=== PATIENT | male | born 1945 | race Caucasian/White ===

== ENCOUNTER 2018-03-12 03:46 | Observation (INO) | payer MEDICARE, BC ==
[~2018-03-12] VITALS: Ht 175.3 cm; Wt 75.5 kg
--- NOTE | ~2018-03-12 | HP ---
PATIENT: RUDY PLATA MEDICAL RECORD: [id number] ACCOUNT: [id number] LOCATION:[address] : 43 ADMISSION DATE: 03/12/18 HISTORY AND PHYSICAL EXAMINATION DIAGNOSES: 1. Angina. 2. Heart block. 3. Symptomatic bradycardia. 4. Syncope. 5. Carotid vascular disease. 6. Coronary artery disease. 7. Status post carotid endarterectomy. 8. Status post multivessel percutaneous transluminal coronary angioplasty and stent. 9. Hypertension. 10. Abnormal ECG. HISTORY OF PRESENT ILLNESS: This is a gentleman who presents with syncope, found to have significant high-degree heart block with symptomatic bradycardia, he as well as was having some episodes of chest pain and chest discomfort. He as well has unsteady gait and has had a history of carotid disease as well as multivessel PTCA and stent done in [place]. He is on carvedilol and no other AV blocking medications as well as the carvedilol, he is on lisinopril and hydralazine. PHYSICAL EXAMINATION: GENERAL APPEARANCE: Well-nourished, well-developed, appears stated age. Level of distress, comfortable. PSYCHIATRIC: Mental status, alert, normal affect. Orientation, oriented to time, place and person. EYES: Lids and conjunctivae, noninjected. No discharge, no pallor. ENT: Lips, teeth, gums, normal dentition. Oropharynx, no cyanosis, no pallor. NECK: Carotid arteries, bilateral normal upstroke, no bruits, no thrills. JUGULAR VEINS: No jugular venous pressure or distention. CERVICAL LYMPH NODES: Nontender, nonenlarged. THYROID: Not enlarged. Nontender. No nodules. LUNGS: Respiratory effort, unlabored. CHEST: Normal curvature. No thoracic deformity. No chest wall tenderness. Percussion, resonant. Auscultation, clear. No wheezes, no rales, no rhonchi. CARDIOVASCULAR: Precordial exam, nondisplaced. No heaves or pericardial thrills. Rate and rhythm, regular. Heart sounds, normal S1, normal S2. No S3, no gallop, no rub. Systolic murmur, not heard. Diastolic murmur, not heard. EXTREMITIES: No cyanosis, no edema. Peripheral pulses, full and equal in all extremities, except as noted. No bruits appreciated. ABDOMEN: Soft, nondistended. Normal aorta. No bruit. Nontender. No masses. Liver, nontender, no hepatomegaly. Spleen, nontender, no splenomegaly. MUSCULOSKELETAL: No joint tenderness. No joint swelling. No erythema. NEUROLOGICAL: Normal gait, normal strength, normal tone. SKIN: Warm and dry. REVIEW OF SYSTEMS: REVIEW OF SYSTEMS: The patient reports easy bruising but reports no swollen glands. The patient reports no fever, no night sweats, no significant weight gain, no significant weight loss. No significant exercise tolerance. The patient reports no dry eyes, no irritation, no vision change. HISTORY AND PHYSICAL [id number] RUDY PLATA Patient reports no difficulty hearing and no ear pain. Patient reports no frequent nose bleeds or nose and sinus problems. Patient reports on arm pain on exertion. No shortness of breath while lying down. No history of heart murmur. Patient reports no cough, no wheezing or coughing up blood. Patient reports no abdominal pain, no vomiting. Normal appetite. No diarrhea and not vomiting blood. No nausea and no constipation. Patient reports no incontinence. No difficulty urinating. No hematuria. No increased frequency. Patient reports no muscle aches. No weakness, no arthralgias, no back pain. No swelling of the extremities. Patient reports no abnormal mole, no jaundice, no rashes. Reports no loss of consciousness. No weakness and no numbness. No seizures, dizziness, or headaches. The patient reports no depression, no sleep disturbance, feeling safe in a relationship and no alcohol abuse. Patient reports on fatigue. Reports no runny nose or sinus pressure. No itching, no hives, and no frequent sneezing. OVERALL IMPRESSION: Symptomatic bradycardia secondary to the carvedilol, will discontinue the carvedilol. We will change him to Procardia-XL for blood pressure control and due to his abnormal ECG symptomatology, we will proceed with coronary angiography and four-vessel carotid and vertebral angiography. Further care depends upon the findings of the angiography. TRANSINT:[id number] Voice Confirmation ID: [id number] DOCUMENT ID: [id number] MICHI KEANE MD at 1104 CC: [id number] DICTATION DATE: 03/12/18 1014 BLOCKER AND POLISHER: 03/12/18 1108 [facility] [address] [place] [address]
--- NOTE | ~2018-03-12 | EC ---
PATIENT:RUDY PLATA DATE OF SERVICE: 03/12/18 SEX: M MEDICAL RECORD: [id number] DATE OF : 43 [facility] AGE OF PATIENT: 72 ADMISSION DATE: 03/12/18 REFERRING PHYSICIAN: INTERPRETING PHYSICIAN: MICHI PALMA MD ECHOCARDIOGRAM REPORT ECHO CHARGES 4 ECHO COMPLETE Date: 03/12 CLINICAL DIAGNOSIS: CHEST PAIN ECHOCARDIOGRAPHIC MEASUREMENTS (adult normal given) AC root (d.<3.7cm) 3.9 cm LV Septum d (<1.2 cm> 1.3 cm Valve Excursion 2.0 cm LV Septum (systole) 1.5 cm Left Atria (s.<4.0cm> 3.8 cm LVPW d(<1.2cm) 1.6 cm RV (d.<2.3cm) 3.9 cm LVPW (sytole) 1.7 cm LV diastole(<5.6CM) 4.3 cm MV E-F(>70mm/sec) cm LV systole 3.1 cm LVOT Diameter 1.7 cm MV exc.(>10mm) 1.7 cm Est.ejection fraction (50-75%) % DOPPLER: LVIT cm/sec A 100 cm/sec E 163 cm/sec LA cm/sec RVSP 30 mmHg LVOT 140 cm/sec AOP1/2T m/s Asc. Ao 264 cm/sec RVOT cm/sec RA cm/sec PA 212 cm/sec AV Gradient Peak 27.85mmHg AV Mean 14.84mmHg AV Area 1.1 cm MV Gradient Peak 12.17mmHg MV Mean 4.38 mmHg MV Area cm COMMENTS: Shelver: Jeana PALACIO [employer] Maker: 1 Dr. Palma TAPE# PACS Pericardial Effusion N DATE OF SERVICE: 03/12/2018 FINDINGS: 1. Left ventricular chamber size is within normal limits. Left ventricular systolic function is normal. Overall ejection fraction estimated at 55% to 60%. 2. Left atrium is within normal limits at 3.8 cm. Right atrium and right ventricle chamber sizes are mildly dilated. 3. Valvular structures: Aortic valve demonstrates mild calcific aortic stenosis, valve area calculates to 1.1 cm-squared with a gradient of 28 mm across the valve. The remaining valvular structures have normal structure and ECHOCARDIOGRAM REPORT [id number] PLATA,RUDY D motion. 4. Doppler interrogation elsewise reveals lyan-dx-rorfmbed mitral regurgitation, mild tricuspid regurgitation, no other valvular insufficiency or stenosis. Pulmonary systolic pressure is estimated at 30 mmHg. 5. No evidence of pericardial effusion or left ventricular thrombus. TRANSINT:[id number] Voice Confirmation ID: [id number] DOCUMENT ID: [id number] MICHI PALMA MD at 1325 CC: [id number] DICTATION DATE: 03/13/18 1104 EXECUTIVE PILOT: 03/13/18 1140 DIS IN 03/14/18 [id number] [place] [address]
--- NOTE | ~2018-03-12 | HEMODYNAMI ---
PATIENT:RUDY PLATA MEDICAL RECORD: [id number] : 43 [facility] [facility] [id number] ADMISSION DATE: 03/12/18 Generatedon:03/14/201811:06 Patient name: RUDY PLATA Patient #: [id number] SSN: : 1945 Date of study: 03/14/2018 Page: Of Hemodynamic Procedure Report Patient Data Patient Demographics Procedure consent was obtained First Name: RUDY Gender: Male Last Name: SHERLYN : 1945 Middle Initial: D Age: 72 year(s) Patient #: [id number] Race: Unknown Additional ID: [id number] Contact details [address]: [address] [place] [address] [address]ET State: [place] City: [place] Zip code: [address] Past Medical History Allergies Allergen Reaction Date Comments Reported Other allergy 03/13/2018 Milk Other allergy 03/14/2018 ASPARTAME, MULTIPLE FOODS Admission Admission Data Admission Date: 03/12/2018 Admission Time: 4:47 Admit Source: Other Room #: D.2116 Lab Results Lab Result Date: 03/13/2018 Lab Result Time: 10:33 Biochemistry Name Units Result Min Max BUN mg/dl 11 --(-*--)-- 7 18 Creatinine mg/dl 0.6 --(*---)-- 0.6 1.3 CBC Name Units Result Min Max Hematocrit % 44.5 --(*---)-- 42 54 Hemoglobin g/dl 15.3 --(-*--)-- 13.5 17.5 Procedure Procedure Types Cath Procedure PCI Procedure Coronary Stent Coronary Stent Additional Procedure Description Procedure Date Procedure Date: 03/14/2018 Procedure Start Time: 10:53 Procedure End Time: 11:02 Procedure Staff Name Function Dudley Palma MD Performing Physician Crow Nash RN Cut Out Stitcher Elaina Teran RT Monitor Anthony Arteaga RN Nurse Sebastien Jackman RT Scrub Procedure Data Cath Procedure Fluoroscopy Diagnostic fluoroscopy Total fluoroscopy Time: 1.8 time: 1.8 min min Diagnostic fluoroscopy Total fluoroscopy dose: 231 dose: 231 mGy mGy Contrast Material Contrast Material Type Amount (ml) Isovue 300 44 Entry Location Entry Primary Successful Side Size Upsize Upsize Entry Closure Hunter ccessful Closure Location (Fr) 1 (Fr) 2 (Fr) Remarks Device Remarks Radial Right 6 Fr Mechanical artery Short Compression Estimated blood loss: 10 ml Procedure Complications No complications Procedure Medications Medication Administration Route Dosage Oxygen NC 2 l/min Lidocaine 2% added to field 20 Heparin Flush Bag added to field 2 bags (1000units/500ml NS) 0.9% NaCl I.V. 100 ml/hr Radial Cocktail I.A. 1 syringe (Verapomil 2mg/Nitro 400mcg/Heparin 1500units) Versed I.V. 1 mg Fentanyl I.V. 50 mcg Versed I.V. 1 mg Fentanyl I.V. 50 mcg Heparin Bolus I.V. 4000 units Versed I.V. 0.5 mg Fentanyl I.V. 25 mcg Hemodynamics Rest HGB: 15.3 (g/dl) Heart Rate: 72 (bpm) Snapshots Pre Cath Intra NCS Post Cath Vital Signs Time Heart Resp SPO2 etCO2 NIBP (mmHg) Rhythm Pain Sedation Rate (ipm) (%) (mmHg) Status Level (bpm) 10:34:06 69 13 98 29.1 204/104(157) NSR 0 (11) 10(A) , No pain 10:38:39 59 14 98 31.3 188/82(153) NSR 0 (11) 10(A) , No pain 10:43:09 58 15 95 29.9 165/73(121) NSR 0 (11) 10(A) , No pain 10:47:34 54 15 97 0 147/74(118) NSR 0 (11) 10(A) , No pain 10:51:52 55 15 92 26.9 149/73(123) NSR 0 (11) 9(A) , No pain 10:56:14 59 15 95 15.6 128/64(95) NSR 0 (11) 9(A) , No pain 11:00:30 58 14 94 26.1 116/58(97) NSR 0 (11) 9(A) , No pain 11:05:35 59 15 94 30.6 127/68(105) NSR 0 (11) 10(A) , No pain Medications Time Medication Route Dose Verified Delivered Reason Note s Effectiveness by by 10:37:10 Oxygen NC 2 l/min Dudley Cruz used for Louie Arteaga RN procedure 10:37:18 Lidocaine 2% added 20ml Dudley Buckner for local to vial Louie Palma MD anesthetic field 10:38:32 Heparin Flush added 2 bags Dudley Buckner used for Bag to Louie Palma MD procedure (1000units/500ml field NS) 10:38:42 0.9% NaCl I.V. 100 Dudley Cruz Per physician ml/hr Louie Arteaga RN 10:48:14 Versed I.V. 1 mg Dudley Cruz for sedation Louie Arteaga RN 10:48:19 Fentanyl I.V. 50 mcg Dudley Cruz for sedation Louie Arteaga RN 10:53:54 Versed I.V. 1 mg Dudley Cruz for sedation Louie Arteaga RN 10:53:58 Fentanyl I.V. 50 mcg Dudley Cruz for sedation Louie Arteaga RN 10:54:16 Radial Cocktail I.A. 1 Dudley Buckner for (Verapomil syringe Louie Palma MD vasodilation 2mg/Nitro 400mcg/Heparin 1500units) 10:55:17 Heparin Bolus I.V. 4000 Dudley Cruz for veri fied units Louie Arteaga RN anticoagulation with dr palma 10:58:28 Versed I.V. 0.5 mg Dudley Cruz for sedation Louie Arteaga RN 10:58:32 Fentanyl I.V. 25 mcg Dudley Cruz for sedation Louie Arteaga RN Procedure Log Time Note 10:10:21 Crow Nash RN sent for patient. Start room use. 10:19:22 Time tracking: Regular hours (M-F 7:00 - 5:00) 10:19:26 Plan of Care:Hemodynamics will remain stable., Cardiac rhythm will remain stable., Comfort level will be maintained., Respiratory function will remain adequate., Patient/ family verbilizes understanding of procedure., Procedure tolerated without complication., Recovers from procedure without complications.. 10:23:48 H&P Date Dictated: 03/13/2018 Within 30 days and on chart.. 10:24:39 Lab results completed and on chart. 10:24:49 Patient received from Med II to CCL 1 Alert and oriented. Tansferred to table in Supine position. 10:24:52 Warm blankets applied, and trace hugger turned on for patient comfort. 10:24:53 Correct patient and procedure confirmed by team. 10:24:54 Signed procedure consent form obtained from patient. 10:24:55 ECG and BP/O2 sat monitors applied to patient. 10:31:47 Vital chart was started 10::51 Baseline sample Acquired. 10::56 Rhythm: sinus rhythm 10:32:13 Full Disclosure recording started 10:37:10 Oxygen 2 l/min NC was administered by Anthony Arteaga RN; used for procedure; 10:37:18 Lidocaine 2% 20ml vial added to field was administered by Dudley Palma MD; for local anesthetic; 10:38:32 Heparin Flush Bag (1000units/500ml NS) 2 bags added to field was administered by Dudley Palma MD; used for procedure; 10:38:42 0.9% NaCl 100 ml/hr I.V. was administered by Anthony Arteaga RN; Per physician; 10:41:33 Pre-procedure instructions explained to patient. 10:41:34 Pre-op teaching completed and patient verbalized understanding. 10:41:37 Family in patients room. 10:41:38 Patient NPO since Midnight. 10:42:01 Patient allergic to Other allergyASPARTAME, MULTIPLE FOODS 10:42:03 Is the patient allergic to Iodine/contrast media? No. 10:42:05 Is patient on blood thinner?Yes 10:42:09 ACC The patient was administered the following blood thiners within the last 24 hours: ACCPlavix 10:42:12 Patient diabetic? No. 10:42:52 If diabetic: On Metformin? No 10:42:55 Previous problem with sedation/anesthesia? No ? 10:42:56 Snore? Yes 10:42:57 Sleep apnea? No 10:42:58 Deviated septum? No 10:42:59 Opens mouth fully? Yes 10:42:59 Sticks out tongue? Yes 10:43:01 Airway obstruction? No ? 10:43:04 Dentures? No ? 10:43:06 Modified Aquiles's test Ulnar < 7 seconds 10:43:09 Patient pain scale 0/10 ?. 10:43:14 IV patent on arrival in left antecubital with 0.9% NaCl at [facility]. 10:43:20 Right Radial & Left Groin area was prepped with chlora-prep and draped in sterile fashion 10:43:21 Alarms reviewed by R. N. 10:43:21 Sharps counted by scrub and verified by R.N. 10:43:29 Use device set CATH PACK 10:43:31 ACIST Syringe (54218) opened to sterile field. 10:43:31 ACIST Hand Control (94613) opened to sterile field. 10:43:32 ACIST Manifold (37299) opened to sterile field. 10:43:33 Medline Cath Pack ([id number]) opened to sterile field. 10:43:33 Bag Decanter (2002S) opened to sterile field. 10:43:34 DIAGNOSTIC WIRE .035 260cm J wire (941926) opened to sterile field. 10:43:41 SHEATH 6FR Slender ([id number]) opened to sterile field. 10:43:52 INFLATOR Merit BasixCompak (XG0166) opened to sterile field. 10:43:53 CHOICE PT Extra Support 182cm wire ([id number]) opened to sterile field. 10:47:33 Zero performed for pressure channel P1 10:47:39 --------ALL STOP TIME OUT------ 10:47:40 Final Timeout: patient, procedure, and site verified with staff and physician. All members of the team are in agreement. 10:47:43 Right Radial & Left Groin site verified by team. 10:47:47 Physical assessment completed. ASA score P 2 - A patient with mild systemic disease as per Dudley Palma MD. 10:47:50 Sedation plan: IV Moderate Sedation Medication:Versed, Fentanyl 10:48:14 Versed 1 mg I.V. was administered by Anthony Arteaga RN; for sedation; 10:48:19 Fentanyl 50 mcg I.V. was administered by Anthony Arteaga RN; for sedation; 10:53:32 Procedure started. 10:53:42 GUIDE 6FR XBLAD 4.0 catheter ([id number]) opened to sterile field. 10:53:54 Versed 1 mg I.V. was administered by Buffie Arteaga RN; for sedation; 10:53:54 Local anesthetic to right radial artery with Lidocaine 2% by Dudley Palma MD.INITIAL ACCESS ONLY 10:53:58 Fentanyl 50 mcg I.V. was administered by Anthony Arteaga RN; for sedation; 10:54:16 Radial Cocktail (Verapomil 2mg/Nitro 400mcg/Heparin 1500units) 1 syringe I.A. was administered by Dudley Palma MD; for vasodilation; 10:54:41 A 6 Fr Short sheath was inserted into the Right Radial artery 10:55:17 Heparin Bolus 4000 units I.V. was administered by Anthony Arteaga RN; for anticoagulation; verified with dr palma 10:55:32 6 Fr XBLAD 4 guide catheter was inserted over the wire 10:57:38 CHOICE ES 182 wire advanced. 10:57:41 Wire advanced across lesion. 10:58:28 Versed 0.5 mg I.V. was administered by Anthony Arteaga RN; for sedation; 10:58:32 Fentanyl 25 mcg I.V. was administered by Anthony Arteaga RN; for sedation; 10:58:58 Place stent Inflation Number: 1 A JUAN RX 2.0 x 12 stent ([id number]) was prepped and advanced across the 1st Diag. The stent was deployed at 21 REGIS for 0:10 (min:sec). 10:59:16 Stent catheter was removed intact over wire. 10:59:16 Wire removed. 10:59:17 Guide catheter removed. 10:59:43 TR BAND Standard ([id number]) opened to sterile field. 10:59:49 Procedure ended.(Physican Out) 10:59:54 Sheath removed intact; hemostasis achieved with Mechanical Compression to the Right Radial artery. 11:00:13 Fluoroscopy time 01.80 minutes. 11:00:16 Flurop Dose total: 231 11:00:16 Fluoroscopy dose: 231 mGy 11:00:20 Contrast amount:Isovue 300 44ml. 11:00:22 Sharps counted by scrub and verified by R.N. 11:00:25 TR band inflated with 10cc of air. 11:00:27 Insertion/operative site no bleeding no hematoma. 11:00:30 Post-procedure physical assessment completed. ASA score P 2 - A patient with mild systemic disease as per Dudley Palma MD. 11:00:32 Post procedure rhythm: unchanged. 11:00:35 Estimated blood loss: 10 ml 11:00:36 Post procedure instruction explained to patient.Patient verbalizes understanding. 11:00:36 Patient needs reinforcement of post procedure teaching. 11:00:42 Procedure type changed to Cath procedure, PCI procedure, Coronary Stent, Coronary Stent Additional 11:02:45 Procedure and supply charges have been captured, reviewed, submitted and are correct. 11:02:49 Procedure Complication : No complications 11:02:51 Vital chart was stopped 11:02:51 See physician's report for complete and final results. 11:02:53 Report given to Med II. 11:02:56 Patient transfered to PCU with Bed. 11:02:58 Procedure ended. 11:02:58 Full Disclosure recording stopped 11:03:01 End room use (Document Last) Intervention Summary Intervention Notes Time ActionType Lesion and Equipment Used Action# Pressure Duration Attributes 10:58:58 Place stent 1st Diag JUAN RX 2.0 x 1 21 00:10 12 stent ([id number]) Device Usage Item Name Manufacture Quantity Catalog Number Hospital Part Current M inimal Lot# / Charge Number Stock Stock Serial# Code ACIST Syringe Acist 1 95657 414691 [id number] 117737 2 0 (78522) Medical Systems Inc ACIST Hand Acist 1 22021 979227 975007 405527 5 Control Medical (87548) Systems Inc ACIST Manifold Acist 1 14053 793549 713781 621347 5 (91548) Medical Systems Inc Medline Cath Cardinal 1 [id number] 013929 21075 913351 5 [facility] ([id number]) Bag Decanter Microtek 1 2001S 489995 60791 313829 5 () Medical Inc. DIAGNOSTIC St [place] 1 999237 264293 485958 153592 3 0 WIRE .035 260cm J wire (510943) SHEATH 6FR Terumo 1 [id number] 367990 374210 596751 4 0 Slender ([id number]) INFLATOR Merit Merit 1 [id number] 352854 943027 756157 1 5 [facility] HospitalZeligsoft (QH2532) CHOICE PT [place] 1 [id number] 135609 590379 175761 5 Extra Support Scientific 182cm wire ([id number]) GUIDE 6FR Cardinal 1 [id number] 996985 528882 818801 3 XBLAD 4.0 Health catheter ([id number]) JUAN RX 2.0 x Medtronic 1 [id number] 345342 7703361 946141 5 [id number] 12 stent ([id number]) TR BAND Terumo 1 [id number] 249538 676566 352938 4 0 Standard ([id number]) Signature Audit Lavina Stage Time Signature Unsigned Intra-Procedure 03/14/2018 Elaina Teran 11:06:21 AM RT(R) Signatures Monitor : Elaina Teran Signature : RT Date : Time : [address] [address]
--- NOTE | ~2018-03-12 | HEMODYNAMI ---
PATIENT:RUDY PLATA MEDICAL RECORD: [id number] : 43 [id number] ADMISSION DATE: 03/12/18 Generatedon:03/13/201811:07 Patient name: RUDY PLATA Patient #: [id number] SSN: : 1945 Date of study: 03/13/2018 Page: Of Hemodynamic Procedure Report Patient Data Patient Demographics Procedure consent was obtained First Name: RUDY Gender: Male Last Name: SHERLYN : 1945 [facility] Initial: D Age: 72 year(s) Patient #: [id number] Race: Unknown Additional ID: [id number] Contact details [address]: [address] [place] [address] [address]ET State: [place] City: [place] Zip code: [address] Past Medical History Allergies Allergen Reaction Date Comments Reported Other allergy 03/13/2018 Milk Admission Admission Data Admission Date: 03/12/2018 Admission Time: 4:47 Admit Source: Other Room #: D.6 Lab Results Lab Result Date: 03/13/2018 Lab Result Time: 10:33 Biochemistry Name Units Result Min Max BUN mg/dl 11 --(-*--)-- 7 18 Creatinine mg/dl 0.6 --(*---)-- 0.6 1.3 CBC Name Units Result Min Max Hematocrit % 44.5 --(*---)-- 42 54 Hemoglobin g/dl 15.3 --(-*--)-- 13.5 17.5 Procedure Procedure Types Cath Procedure Diagnostic Procedure LHC LHC w/Coronaries FFR/IVUS Intra-Coronary IVUS Initial Sedation Charges Moderate Sedation up to 15 minutes Peripheral Cath Diagnostic Procedure Cath Peripheral Four Vessel Arteriogram Procedure Description Procedure Date Procedure Date: 03/13/2018 Procedure Start Time: 10:36 Procedure End Time: 11:02 Procedure Staff Name Function Dudley Palma MD Performing Physician Deonte Gutierrez RT Monitor Shyanne Jain RT Scrub Drake Lorigan RN Nurse Procedure Data Cath Procedure Fluoroscopy Diagnostic fluoroscopy Total fluoroscopy Time: 7.7 time: 7.7 min min Diagnostic fluoroscopy Total fluoroscopy dose: 792 dose: 792 mGy mGy Contrast Material Contrast Material Type Amount (ml) Isovue 300 143 Entry Location Entry Primary Successful Side Size Upsize Upsize Entry Closure Succes sful Closure Location (Fr) 1 (Fr) 2 (Fr) Remarks Device Remarks Femoral Right 5 Fr Exoseal artery Estimated blood loss: 10 ml Diagnostic catheters Device Type Used For End Catheter Placement MULTIPACK Pigtail 5 Fr Procedure catheter MULTIPACK JL 4.0 5Fr Procedure catheter MULTIPACK 3DRC 5Fr Procedure catheter DIAGNOSTIC AR 2 MOD 5 Fr Procedure catheter ([id number]) MULTIPACK 3DRC 5Fr Procedure catheter Procedure Complications No complications Procedure Medications Medication Administration Route Dosage 0.9% NaCl I.V. 100 ml/hr Oxygen etCO2 Nasal cannula 2 l/min Heparin Flush Bag added to field 2 bags (1000units/500ml NS) Lidocaine 2% added to field 20 Versed I.V. 2 mg Fentanyl I.V. 100 mcg Heparin Bolus I.V. 4000 units Hemodynamics Rest Heart Rate: 76 (bpm) Snapshots Pre Cath Intra NCS Post Cath Vital Signs Time Heart Resp SPO2 etCO2 NIBP (mmHg) Rhythm Pain Sedation Rate (ipm) (%) (mmHg) Status Level (bpm) 10:12:27 72 14 100 29.9 208/98(169) NSR 0 (11) 10(A) , No pain 10:17:22 62 14 94 10.4 187/85(156) NSR 0 (11) 10(A) , No pain 10:22:15 61 15 96 18.7 191/86(162) NSR 0 (11) 10(A) , No pain 10:27:05 60 15 96 0 180/85(139) NSR 0 (11) 10(A) , No pain 10:31:57 62 16 97 20.2 190/91(155) NSR 0 (11) 10(A) , No pain 10:36:49 70 16 97 23.9 195/94(162) NSR 0 (11) 9(A) , No pain 10:41:36 59 25 94 19.4 162/74(131) NSR 0 (11) 9(A) , No pain 10:47:08 66 13 97 23.9 179/89(140) NSR 0 (11) 9(A) , No pain 10:51:52 57 26 95 0 153/75(125) NSR 0 (11) 10(A) , No pain 10:56:39 63 13 96 30.7 170/84(143) NSR 0 (11) 10(A) , No pain 11:01:28 60 13 97 0 160/81(132) NSR 0 (11) 10(A) , No pain Medications Time Medication Route Dose Verified Delivered Reason Notes Effectiveness by by 10:13:29 0.9% NaCl I.V. 100 Drake Drake Per physician ml/hr Nhan Justin RN RN 10:13:43 Oxygen etCO2 2 Drake Drake Per physician Nasal l/min Nhan Justin cannula RN RN 10:13:55 Heparin Flush added 2 Drake Drake used for Bag to bags Nhan Justin procedure (1000units/500ml field JOSEPH RN NS) 10:14:06 Lidocaine 2% added 20ml Drake Drake for local to vial Nhan Justin anesthetic RN RN 10:34:10 Versed I.V. 2 mg Drake Drkae for sedation Nhan Justin RN RN 10:34:18 Fentanyl I.V. 100 Drake Drake for sedation mcg Nhan Justin RN RN 10:51:33 Heparin Bolus I.V. 4000 Drake Drake for units Nhan Justin anticoagulation RN activities assistant Log Time Note 9:44:54 Informed consent obtained and on chart 9:45:25 Admit Source: Other 9:46:51 Diagnostic Cath status Elective 9:46:54 Drake Justin RN sent for patient. Start room use. 9:46:56 Time tracking: Call back (After hours or weekends) 9:47:18 Plan of Care:Hemodynamics will remain stable., Cardiac rhythm will remain stable., Comfort level will be maintained., Respiratory function will remain adequate., Patient/ family verbilizes understanding of procedure., Procedure tolerated without complication., Recovers from procedure without complications.. 9:49:04 Lab Result : Hemoglobin 15.3 g/dl 9:49:04 Lab Result : Hematocrit 44.5 % 9:49:04 Lab Result : BUN 11 mg/dl 9:49:04 Lab Result : Creatinine 0.6 mg/dl 9:49:06 Lab results completed and on chart. 9:49:53 Patient allergic to Other allergyMilk 9:50:15 H&P Date Dictated: 03/12/2018 Within 30 days and on chart.. 10:10:30 Warm blankets applied, and trace hugger turned on for patient comfort. 10:10:30 Patient received from Med II to CCL 1 Alert and oriented. Tansferred to table in Supine position. 10:10:31 ECG and BP/O2 sat monitors applied to patient. 10:10:31 Correct patient and procedure confirmed by team. 10:10:32 Vital chart was started 10:10:33 Baseline sample Acquired. 10:10:41 Rhythm: sinus rhythm 10:10:50 Full Disclosure recording started 10:10:52 Pre-op teaching completed and patient verbalized understanding. 10:10:52 Pre-procedure instructions explained to patient. 10:10:53 Family unavailable. 10:10:54 Patient NPO since Midnight. 10:10:56 Is the patient allergic to Iodine/contrast media? No. 10:10:57 Is patient on blood thinner?Yes 10:10:59 ACC The patient was administered the following blood thiners within the last 24 hours: ACCPlavix 10:11:00 Patient diabetic? No. 10:11:03 Previous problem with sedation/anesthesia? No ? 10:11:04 Snore? Yes 10:11:05 Sleep apnea? No 10:11:06 Opens mouth fully? Yes 10:11:06 Deviated septum? No 10:11:07 Sticks out tongue? Yes 10:11:49 Airway obstruction? No ? 10:11:54 Dentures? No ? 10:11:57 Pre procedure: right dorsailis pedis pulse 2+ Normal; easily identifiable; not easily obliterated 10:11:59 Patient pain scale 0/10 ?. 10:12:04 IV patent on arrival in right forearm with 0.9% NaCl at [facility]. 10:12:10 Right groin area was prepped with chlora-prep and draped in sterile fashion 10:12:11 Sharps counted by scrub and verified by R.N. 10:12:11 Alarms reviewed by R. N. 10:12:13 Use device set Femoral Dx 10:12:14 ACIST Syringe (82675) opened to sterile field. 10:12:15 Medline Cath Pack ([id number]) opened to sterile field. 10:12:15 Bag Decanter (2002S) opened to sterile field. 10:12:17 ACIST Manifold (56364) opened to sterile field. 10:12:17 ACIST Hand Control (95330) opened to sterile field. 10:12:18 Tegaderm 4 x 4 (1626W) opened to sterile field. 10:12:20 SHEATH Prelude 5Fr 0.035 (ZZV-2E-57-035) opened to sterile field. 10:12:21 DIAGNOSTIC WIRE .035 260cm J wire (158688) opened to sterile field. 10:12:23 DIAGNOSTIC Multipack 5Fr catheter set (FS6901) opened to sterile field. 10:13:29 0.9% NaCl 100 ml/hr I.V. was administered by Drake Justin RN; Per physician; 10:13:43 Oxygen 2 l/min etCO2 Nasal cannula was administered by Drake Justin RN; Per physician; 10:13:55 Heparin Flush Bag (1000units/500ml NS) 2 bags added to field was administered by Drake Justin RN; used for procedure; 10:14:06 Lidocaine 2% 20ml vial added to field was administered by Drake Justin RN; for local anesthetic; 10:17:27 Physician paged 10:29:48 Zero performed for pressure channel P1 10:33:13 Physician arrived 10:33:14 --------ALL STOP TIME OUT------ 10:33:15 Final Timeout: patient, procedure, and site verified with staff and physician. All members of the team are in agreement. 10:33:16 Right groin site verified by team. 10:33:20 Physical assessment completed. ASA score P 2 - A patient with mild systemic disease as per Dudley Palma MD. 10:33:22 Sedation plan: IV Moderate Sedation Medication:Versed, Fentanyl 10:34:10 Versed 2 mg I.V. was administered by Drake Justin RN; for sedation; 10:34:18 Fentanyl 100 mcg I.V. was administered by Drake Justin RN; for sedation; 10:36:22 Procedure started. 10:36:25 Local anesthetic to right femoral artery with Lidocaine 2% by Dudley Palma MD.INITIAL ACCESS ONLY 10:36:43 A 5 Fr sheath was inserted into the Right Femoral artery 10:36:53 A MULTIPACK Pigtail 5 Fr catheter was advanced over the wire and used for Procedure. 10:37:14 LV gram done using ALVAREZ 10:37:17 Injector settings: Ml/sec: 10, Volume: 20., 10:37:51 EF : 60 % 10:37:55 Catheter exchanged over wire. 10:38:00 A MULTIPACK JL 4.0 5Fr catheter was advanced over the wire and used for Procedure. 10:38:46 LCA angiography performed. 10:39:26 SHEATH Prelude 6Fr 0.035 (YXK-6N-18-035) opened to sterile field. 10:39:27 CHOICE PT Extra Support 182cm wire ([id number]) opened to sterile field. 10:39:28 INFLATOR Merit BasixCompak (LM4594) opened to sterile field. 10:39:59 Catheter exchanged over wire. 10:40:05 A MULTIPACK 3DRC 5Fr catheter was advanced over the wire and used for Procedure. 10:41:04 Catheter removed. unable to cannulate vessel. 10:41:12 A DIAGNOSTIC AR 2 MOD 5 Fr catheter (716905N) was advanced over the wire and used for Procedure. 10:45:21 RCA angiography performed. 10:45:22 Catheter exchanged over wire. 10:45:37 A MULTIPACK 3DRC 5Fr catheter was advanced over the wire and used for Procedure. 10:45:45 Right carotid angiography performed. 10:45:46 Right subclavian angiography performed 10:45:48 Left carotid angiography performed. 10:45:57 Catheter removed. 10:46:07 GUIDE 6FR HS I catheter (LA6HSI) opened to sterile field. 10:46:16 6 Fr HSI guide catheter was inserted over the wire 10:48:10 Guide Catheter removed. unable to cannulate vessel. 10:48:21 GUIDE 6FR AR 1.0 catheter ([id number]) opened to sterile field. 10:49:24 RCA angiography performed. 10:49:31 [place] Ramona Eagleye IVUS Catheter (91993I) opened to sterile field. 10:50:18 CHOICE PT ES wire advanced. 10:50:31 Wire advanced across lesion. 10:51:33 Heparin Bolus 4000 units I.V. was administered by Drake Justin RN; for anticoagulation; 10:54:25 IVUS catheter advanced over wire. 10:54:27 IVUS pass to RCA lesion performed. 10:54:28 IVUS catheter removed over wire. 10:54:57 Place stent Inflation Number: 1 A JUAN RX 4.0 x 34 stent ([id number]) was prepped and advanced across the Mid RCA. The stent was deployed at 19 REGIS for 0:10 (min:sec). 10:55:06 Stent catheter was removed intact over wire. 10:55:43 Wire removed. 10:55:44 Guide catheter removed. 10:55:50 EXOSEAL 6Fr (EX600) opened to sterile field. 10:55:57 Sheath removed intact; hemostasis achieved with Exoseal to the Right Femoral artery. 10:55:59 Procedure ended.(Physican Out) 10:59:29 Fluoroscopy time 07.70 minutes. 10:59:33 Fluoroscopy dose: 792 mGy 10:59:33 Flurop Dose total: 792 10:59:37 Contrast amount:Isovue 300 143ml. 10:59:38 Sharps counted by scrub and verified by R.N. 10:59:39 Insertion/operative site no bleeding no hematoma. 10:59:41 Post-op/insertion site Right Femoral artery dressed using a 4 x 4 and Tegaderm. 10:59:45 Post right femoral artery:stable, soft, clean and dry 10:59:46 Post Procedure Pulses reassessed and unchanged 11:00:53 Post-procedure physical assessment completed. ASA score P 2 - A patient with mild systemic disease as per Dudley Palma MD. 11:00:56 Post procedure rhythm: sinus rhythm 11:00:58 Estimated blood loss: 10 ml 11:01:00 Patient needs reinforcement of post procedure teaching. 11:01:00 Post procedure instruction explained to patient.Patient verbalizes understanding. 11:01:07 Procedure type changed to Cath procedure, Diagnostic procedure, LHC, LHC w/Coronaries, FFR/IVUS, Intra-Coronary IVUS Initial, Sedation Charges, Moderate Sedation up to 15 minutes, Peripheral Cath Diagnostic Procedure, Cath Peripheral, Four Vessel Arteriogram 11:02:45 Procedure and supply charges have been captured, reviewed, submitted and are correct. 11:02:47 Procedure Complication : No complications 11:02:49 Vital chart was stopped 11:02:50 See physician's report for complete and final results. 11:02:51 Report given to PCU. 11:02:55 Patient transfered to PCU with Stretcher. 11:02:58 Full Disclosure recording stopped 11:02:58 Procedure ended. 11:03:06 End room use (Document Last) Intervention Summary Intervention Notes Time ActionType Lesion and Equipment Used Action# Pressure Duration Attributes 10:54:57 Place stent Mid RCA JUAN RX 4.0 x 1 19 00:10 34 stent ([id number]) Device Usage Item Name Manufacture Quantity Catalog Number Hospital Part Current Minimal Lot# / Charge Number Stock Stock Serial# Code ACIST Syringe Acist 1 90230 103045 017875 [id number] 20 (91162) [employer] Inc Bag Decanter Microtek 1 2001S 476685 25519 736384 5 (2001S) Medical Inc. Medline Cath Cardinal 1 [id number] 767949 51679 430647 5 Pack Health ([id number]) ACIST Hand Acist 1 42757 083416 555468 481413 5 Control (88879) [employer] Inc ACIST Manifold Acist 1 52793 246726 920279 798154 5 (23656) Medical Systems Inc Tegaderm 4 x 4 3M 1 1626W 059537 697929 907700 5 (1626W) SHEATH Prelude Merit 1 KJB-3F-16-035 489696 713016 165466 5 5Fr 0.035 Medical (VYB-1R-89-035) DIAGNOSTIC WIRE [place] 1 143476 364590 601058 554715 30 .035 260cm J wire (525620) DIAGNOSTIC Cardinal 1 AS4688 940426 16927 304235 30 Multipack 5Fr Health catheter set (IM9129) MULTIPACK Cardinal 1 641001 5 Pigtail 5 Fr Health catheter MULTIPACK JL Cardinal 1 268811 5 4.0 5Fr Health catheter SHEATH Prelude Merit 1 TUB-5E-33-35 366229 5921742 972716 5 6Fr 0.035 Medical (WSY-6W-65-035) CHOICE PT Extra [place] 1 [id number] 855601 530763 223789 5 Support 182cm Scientific wire ([id number]) INFLATOR Merit Merit 1 ZG8759 569648 978723 385717 15 [facility] (BI8108) MULTIPACK 3DRC Cardinal 1 955170 5 5Fr catheter Health DIAGNOSTIC AR 2 Cardinal 1 [id number] 477693 768612 524465 20 MOD 5 Fr Health catheter (072430R) GUIDE 6FR HS I Medtronic 1 LA6HSI 226129 04721 505801 1 catheter (LA6HSI) GUIDE 6FR AR Medtronic 1 [id number] 130333 69479 616519 1 1.0 catheter (WI8YR86) [place] 1 82762Y 236766 649094 301338 8 Ramona Eagleye IVUS Catheter (72671C) JUAN RX 4.0 x Medtronic 1 [id number] 747783 4220574 330262 5 [id number] 34 stent ([id number]) EXOSEAL 6Fr Cardinal 1 EX600 187072 447153 573272 10 (EX600) Health Signature Audit [place] Stage Time Signature Unsigned Intra-Procedure 03/13/2018 Deonte Gutierrez RT(R) 11:03:52 AM RT(R) 03/13/2018 11:06:08 AM Intra-Procedure 03/13/2018 Deonte Gutierrez 11:07:11 AM RT(R) Signatures Monitor : Deonte Gutierrez RT Signature : Date : Time : [facility] [address] [place] [address]
--- NOTE | ~2018-03-12 | DS ---
PATIENT:RUDY PLATA :43 MEDICAL RECORD: [id number] DISCHARGE SUMMARY ADMISSION DATE: 03/12/18 DISCHARGE DATE: 03/14/18 DISCHARGE DIAGNOSES: 1. Angina. 2. Coronary artery disease. 3. PTCA stent right coronary artery and left anterior descending this admission. HOSPITAL COURSE: Mr. Plata presents with anginal symptomatology, found to have significant disease of the RCA and LAD, underwent successful PTCA stent of both territories. He was discharged home with the addition of aspirin and Plavix to his medical regimen. He will follow up with [facility] in 1 month. TRANSINT:[id number] Voice Confirmation ID: [id number] DOCUMENT ID: [id number] MICHI KEANE MD at 1325 CC: [id number] DICTATION DATE: 03/14/18 1104 DIGITAL ASSISTANT: 03/14/18 1305 DIS IN 03/14/18 [place] [id number] [place] [address]
--- NOTE | ~2018-03-12 | OP ---
PATIENT NAME: RUDY PLATA MEDICAL RECORD: [id number] :43 LOCATION:[facility] ADMISSION DATE:03/12/18 SURGEON: MICHI KEANE MD DATE OF OPERATION: 03/13/2018 PROCEDURES: 1. PTCA stent RCA. 2. Left heart catheterization. 3. Selective coronary angiography. 4. Left ventriculogram. 5. Intravascular ultrasound. 6. Four-vessel carotid and vertebral angiography. INDICATION: Unstable angina and coronary artery disease. PROCEDURE IN DETAIL: After informed consent was obtained and after detailed explanation of risks, benefits as well as alternative therapies, the patient elected to proceed with angiogram and angioplasty. The right femoral area was prepped and draped in normal sterile fashion. Right femoral artery was cannulated via modified Seldinger technique with placement of 6-Upper Sorbian sheath. All catheters exchanged through this sheath. FINDINGS: 1. There was subselection of each carotid as well as the left subclavian. Right side common internal and external carotids have mild plaquing, none greater than 30%, no flow-limiting stenosis. 2. Vertebral artery has no significant disease. 3. Left system: The common internal and external carotids have mild plaquing, no flow-limiting stenosis. There is evidence of a previous carotid endarterectomy. This is widely patent. The vertebral artery has no significant disease. Left ventriculography was performed in standard 30-degree ALVAREZ view, reveals good cardiac wall motion throughout all segments. Overall ejection fraction is estimated at 60%. SELECTIVE CORONARY ANGIOGRAPHY: 1. Left main is with no significant angiographic disease. 2. Left anterior descending has mild irregularities; however, relatively large LAD diagonal system, has a 90% stenosis throughout the proximal aspect. 3. Left circumflex has moderate irregularities, but no flow-limiting stenosis. 4. Right coronary has greater than 75% stenosis in the mid vessel confirmed by intravascular ultrasound. PTCA STENT OF THE RCA: The stent used was a 4.0 x 30 mm [place], taken to 19 atmospheres. Result was 0% residual stenosis. OVERALL IMPRESSION: Successful percutaneous transluminal coronary angioplasty stent of the right coronary artery going from greater than 75% initial stenosis to 0% residual. PLAN: PTCA stent of the LAD, diagonal in the near future. TRANSINT:[id number] Voice Confirmation ID: [id number] DOCUMENT ID: [id number] OPERATIVE REPORT [id number] RUDY PLATA JEFFREY MD at 1104 CC: [id number] DICTATION DATE: 03/13/18 110 CLINICAL ACCOUNT EXECUTIVE: 03/13/18 1138 ADM IN [place] [id number] [place] [id number]
--- NOTE | ~2018-03-12 | OP ---
PATIENT NAME: RUDY PLATA MEDICAL RECORD: [id number] :43 [facility] ADMISSION DATE:03/12/18 SURGEON: MICHI KEANE MD DATE OF OPERATION: 03/14/2018 PROCEDURES: 1. PTCA stent LAD diagonal. 2. Selective coronary angiography. INDICATION: Angina and coronary artery disease. PROCEDURE IN DETAIL: After informed consent was obtained and after a detailed description of risks, benefits as well as alternative therapies, the patient elected to proceed with angiogram and angioplasty. The right femoral area was prepped and draped in normal sterile fashion. Right femoral artery was cannulated via modified Seldinger technique with the placement of 6-[place] sheath. All catheters exchanged through this sheath. FINDINGS: The left anterior ascending diagonal is 90% stenosed. This was addressed with a 2.0 x 12 mm [place] stent. Result was 0% residual stenosis. OVERALL IMPRESSION: Successful percutaneous transluminal coronary angioplasty stent of the left anterior descending diagonal going from 95% initial stenosis to 0% residual stenosis. TRANSINT:[id number] Voice Confirmation ID: [id number] DOCUMENT ID: [id number] MICHI KEANE MD at 1325 CC: [id number] DICTATION DATE: 03/14/18 1103 BUSINESS PROFESSOR: 03/14/18 1148 DIS IN 03/14/[address] [address]
[2018-03-12 05:53] VITALS: BP 165/78; Ht 175.3 cm; Wt 75.5 kg
[2018-03-12] MEDS ORDERED: BAYER CHEWABLE81 MG PO (08:02)
[2018-03-12] MEDS ORDERED: PLAVIX75 MG PO (08:02)
[2018-03-12] MEDS ORDERED: COREG12.5 MG PO (08:02)
[2018-03-12] MEDS ORDERED: ZESTRIL40 MG PO (08:03)
[2018-03-12] MEDS ORDERED: PROTONIX40 MG PO (08:04)
[2018-03-12] MEDS ORDERED: MAG-OX 400 MG400 MG PO (08:10)
[2018-03-12] MEDS ORDERED: HYDRALAZINE HCL25 MG PO (08:11)
[2018-03-12 09:13] VITALS: BP 183/74
[2018-03-12 10:39] LABS: BASOPHILS 0.7 % (0-2); EOSINOPHILS 1.5 % (0-7); HEMATOCRIT 44.5 % (42.0-54.0); HEMOGLOBIN 15.3 g/dL (13.5-17.5); IMMATURE GRANULOCYTES 0.2 % (0-5); LYMPHOCYTES 25.3 % (15-50); MCH 32.4 pg (26.0-34.0); MCHC 34.4 g/dL (31.0-37.0); MCV 94.3 fL (80.0-100.0); MEAN PLATELET VOLUME 9.9 fL (7.4-10.4); MONOCYTES 10.7 % (2-11); NEUTROPHILS 61.6 % (40-80); PLATELET COUNT 143 10x3/uL (130-400); RBC 4.72 10x6/uL (4.20-6.10); RDW 12.9 % (11.5-14.5); WBC 4.6 10x3/uL (4.8-10.8)
[2018-03-12 10:49] LABS: CALC OSMOLALITY 274 mosm/kg (275-300); CALCIUM 8.6 mg/dL (8.5-10.1); CARBON DIOXIDE 32.6 mmol/L (21.0-32.0); CHLORIDE - SERUM 102 mmol/L (98-107); CREATININE - SERUM 0.6 mg/dL (0.6-1.3); GLUCOSE 106 mg/dL (74-106); POTASSIUM - SERUM 4.5 mmol/L (3.5-5.1); SODIUM 138 mmol/L (136-145); UREA NITROGEN 11 mg/dL (7-18); eGFR NON AFRICAN AMERICAN > 90 mL/min (90-120)
[2018-03-12] MEDS ORDERED: CARAFATE1 G PO (12:02)
[2018-03-12 12:34] VITALS: BP 177/69
[2018-03-12 16:38] VITALS: BP 159/83
[2018-03-12 21:26] VITALS: BP 146/80
[2018-03-13 00:45] VITALS: BP 142/69
[2018-03-13 06:29] VITALS: BP 152/74
[2018-03-13 08:57] VITALS: BP 175/85
[2018-03-13 12:33] VITALS: BP 207/97
[2018-03-13 16:08] VITALS: BP 110/71
[2018-03-13 20:00] VITALS: BP 120/66
[2018-03-14] VITALS: BP 139/65
[2018-03-14 04:00] VITALS: BP 152/76
[2018-03-14 08:54] VITALS: BP 152/75
[2018-03-14] MEDS ORDERED: NIFEDIPINE ER60 MG PO (14:04)
== END 2018-03-14 15:50 | disposition home or self-care (01) ==
LOC: D.M2 03:46 → D.CLR 04:47 → OBSVTIME 04:48 → D.CLR 03-14 11:14
PROVIDERS: Internal Medicine Interventional Cardiology
DX: I25.110 Atherosclerotic heart disease of native coronary artery with unstable angina pectoris (principal); Z95.5 Presence of coronary angioplasty implant and graft; R00.1 Bradycardia, unspecified; I45.9 Conduction disorder, unspecified; I10 Essential (primary) hypertension; R94.31 Abnormal electrocardiogram [ECG] [EKG]
CPT/HCPCS: 36225; 93458; 92978; 36222; C9600 ×2